=== PATIENT | female | born 1990 | race Caucasian/White ===

== ENCOUNTER 2018-01-26 21:52 | Outpatient (CLI) | payer BC | END 2018-01-27 01:33 | disposition home or self-care (01) | LOC: M LDO 21:52 | DX: O47.1 False labor at or after 37 completed weeks of gestation (principal); Z3A.38 38 weeks gestation of pregnancy; O35.1XX0 Maternal care for (suspected) chromosomal abnormality in fetus, not applicable or unspecified | CPT/HCPCS: 59025 ==

== ENCOUNTER 2018-01-30 11:23 | Inpatient (IN) | payer BC ==
[2018-01-30 12:14] LABS: HEMATOCRIT 37.6 % (36.0-47.0); HEMOGLOBIN 12.9 g/dl (12.0-16.0); MEAN CORPUSCULAR HEMOGLOBIN 30.8 pg (27.0-33.0); MEAN CORPUSCULAR HGB CONC 34.3 g/dl (32.0-36.5); MEAN CORPUSCULAR VOLUME 89.7 fl (80.0-96.0); PLATELET COUNT, AUTOMATED 194 10^3/uL (150-450); RED BLOOD COUNT 4.19 10^6/uL (4.00-5.40); RED CELL DISTRIBUTION WIDTH 13.3 % (11.5-14.5); WHITE BLOOD COUNT 7.1 10^3/uL (4.0-10.0)
[2018-01-30] MEDS ORDERED: FENTANYL 2MCG/ML ROPIVACAINE 0.2% IN 0.9% NACL 200ML IVBAG As Ordered (12:55)
[2018-01-30] MEDS ORDERED: ePHEDrine SULFATE 25 MG/5 ML(5MG/ML) SYRINGE IV (14:00)
[2018-01-30] MEDS ORDERED: LACTATED RINGER'S 1000 ML IV (14:00)
[2018-01-30] MEDS ORDERED: diphenhydrAMINE INJ 50MG/ML VIAL (J1200) IV (14:00)
[2018-01-30] MEDS ORDERED: REFRIGERATOR IV KEYS XX (14:00)
[2018-01-30] MEDS ORDERED: EPIDURAL/PCA KEYS XX (14:00)
[2018-01-30] MEDS ORDERED: NALOXONE INJ 0.4 MG/1 ML VIAL (J2310) IV (14:00)
[2018-01-30] MEDS ORDERED: EPIDURAL COMMENT XX (14:00)
[2018-01-30] MEDS: FENTANYL/ROPIVACAINE/NACL BAG 200 ML EPIDURAL (14:00)
[2018-01-30] MEDS: LR 1,000 ML IV (17:51)
[2018-01-30] MEDS: OXYTOCIN DRIP 30 UNITS in APPROPRIATE DILUENT 1 EA IV ×2 (18:06→21:15)
[2018-01-30] MEDS: ONDANSETRON 4MG/2ML VIAL (J2405) IV (18:13)
[2018-01-30] MEDS ORDERED: MEASLES,MUMPS,RUBELLA VACCINE INJ (MMR-II) (90707) SC (21:15)
[2018-01-30] MEDS ORDERED: ANUSOL HC CREAM 30GM TOP (21:15)
[2018-01-30] MEDS ORDERED: METHYLERGONOVINE MALEATE 0.2 MG TAB PO (21:15)
[2018-01-30] MEDS ORDERED: RHOGAM 300 MCG (1500 IU) INJ (J2790) IM (21:15)
[2018-01-30] MEDS: ACETAMINOPHEN 500 MG TAB PO (21:31)
[2018-01-30] MEDS: DOCUSATE SODIUM 100 MG CAP PO (23:34)
[2018-01-30] MEDS: IBUPROFEN 800 MG TAB PO (23:34)
[2018-01-31] MEDS: PRENATAL VITAMINS CHEWABLE TABLET PO (09:48)
[2018-01-31] MEDS: IBUPROFEN 800 MG TAB PO ×3 (09:49→21:07)
[2018-01-31] MEDS: DIBUCAINE 1% OINTMENT 30GM TOP (12:47)
[2018-01-31] MEDS: DOCUSATE SODIUM 100 MG CAP PO ×2 (12:47→20:07)
[2018-01-31] MEDS: MOM 30ML SUSPENSION UDC PO (17:54)
[2018-01-31] MEDS: ACETAMINOPHEN 500 MG TAB PO (20:07)
[2018-02-01] MEDS: PRENATAL VITAMINS CHEWABLE TABLET PO (08:04)
[2018-02-01] MEDS: DOCUSATE SODIUM 100 MG CAP PO (08:04)
[2018-02-01] MEDS: IBUPROFEN 800 MG TAB PO (08:04)
[2018-02-01] MEDS: MOM 30ML SUSPENSION UDC PO (08:04)
== END 2018-02-01 10:30 | disposition home or self-care (01) | DRG 560 ==
LOC: M LDO 11:23 → M LDI 11:45 → M OBS 23:16
PROVIDERS: Obstetrics & Gynecology
PROC: 10E0XZZ Delivery of Products of Conception, External Approach (ICD-10-PCS; principal; 2018-01-30)
PROC: 0HQ9XZZ Repair Perineum Skin, External Approach (ICD-10-PCS; 2018-01-30)
DX: O70.0 First degree perineal laceration during delivery (principal); Z37.0 Single live birth; Z3A.38 38 weeks gestation of pregnancy

== ENCOUNTER → 2022-09-10 | Outpatient (REF) | payer BC ==
[~2022-09-10] MED LIST: IBUP-1114 PO; MAPA500T2 PO; PRENTAB9 PO
== END ==
LOC: M LAB REF 17:05
PROVIDERS: ATTEND Family Medicine
DX: N76.0 Acute vaginitis (principal)

== ENCOUNTER → 2022-09-17 | Outpatient (CLI) | payer BC | LOC: M WHC 12:58 | PROVIDERS: ATTEND Family Medicine | DX: R10.2 Pelvic and perineal pain (principal) ==

== ENCOUNTER → 2023-05-25 | Day surgery (SDC) | payer BC ==
[~2023-05-25] VITALS: Ht 165.1 cm; Wt 58.1 kg
[~2023-05-25] MED LIST changes: +LIDOCAINE 2% 100MG/5ML SDV (FOR ANES.) As Ordered ONE; +NS 1,000 ML IV ONE; +propofoL 500 MG/50 ML VIAL As Ordered ONE
[2023-05-25 10:00] VITALS: TEMP 97.4
[2023-05-25 10:40] VITALS: BP 125/60; O2SAT 100
== END | disposition home or self-care (01) ==
LOC: M OPP 08:12
PROVIDERS: ATTEND Internal Medicine Gastroenterology
DX: Z12.11 Encounter for screening for malignant neoplasm of colon (principal); Z80.0 Family history of malignant neoplasm of digestive organs; K64.8 Other hemorrhoids